=== PATIENT | male | born 1965 | race Caucasian/White ===

== ENCOUNTER → 2019-09-07 | Outpatient (CLI) | payer OTHER ==
--- NOTE | 2019-09-07 14:54 | RAD ---
EXAM: Left foot, 2 views. HISTORY: Pain. COMPARISON: None. FINDINGS: 2 views of the left foot are obtained. There is first metatarsal phalangeal joint space narrowing with subchondral sclerosis and spurring. There is a small benign osseous excrescence along the anterior talus. There is a tiny ossicle posterior to the talus. There is enthesopathy at the Achilles tendon insertion. There is a tiny plantar spur. IMPRESSION: 1. Mild first metatarsal phalangeal joint osteoarthritis. 2. No acute osseous finding. Electronically signed by: Enid Saravia MD (09/07/2019 2:51 PM) [email or web address]
== END | disposition home or self-care (01) ==
LOC: RAD 14:31
PROVIDERS: ATTEND Physician Assistant
DX: M19.072 Primary osteoarthritis, left ankle and foot (principal); M76.62 Achilles tendinitis, left leg
CPT/HCPCS: 73620